=== PATIENT | male | born 1980 | race Caucasian/White ===

== ENCOUNTER 2019-09-19 18:10 | Emergency (ER) | payer BC, OTHER ==
[2019-09-19] MEDS ORDERED: EPINEPHrine 1 MG/10 ML Abboject SYRINGE ONE (18:13)
[2019-09-19] MEDS ORDERED: diphenhydrAMINE 50 MG/ML VIAL ONE (18:13)
[2019-09-19] MEDS ORDERED: methylPREDNISolone Sod Succ/PF 125 MG/2 ML VIAL ONE (18:13)
[2019-09-19] MEDS ORDERED: EPINEPHrine 1 MG/ML AMP ONE (18:14)
[2019-09-19] MEDS ORDERED: Albuterol Sulfate 1.25 MG/3 ML NEB ONE (18:17)
[2019-09-19] MEDS ORDERED: Famotidine In NaCl 20 mg/50 ml Premix Bag ONE (18:43)
[2019-09-19] MEDS ORDERED: Amlodipine 5 MG TAB PO SCH (21:00)
[2019-09-20] MEDS ORDERED: predniSONE 20 MG TAB ONE
== END 2019-09-20 00:06 | disposition home or self-care (01) ==
LOC: BURERS 18:10
DX: T63.461A Toxic effect of venom of wasps, accidental (unintentional), initial encounter (principal); T63.2X1A Toxic effect of venom of scorpion, accidental (unintentional), initial encounter; T78.2XXA Anaphylactic shock, unspecified, initial encounter; I10 Essential (primary) hypertension; E78.5 Hyperlipidemia, unspecified
CPT/HCPCS: 96365; 96372; 96375; J0171; J1200; J2930; J7512